=== PATIENT | male | born 1965 | race Two or more races ===

== ENCOUNTER 2017-07-24 09:14 | Inpatient (IN) | payer MEDICAID ==
[~2017-07-24] VITALS: Ht 172.7 cm; Wt 88.9 kg
--- NOTE | 2017-07-24 09:20 | NUR ---
AAOX3, BIBRA FROM WORK C/O SYNCOPAL EPISODE, BS=87MG/DL IN THE FIELD. RR IS EVEN AND UNLABORED WITH NAD NOTED. SKIN IS WARM AND DRY. PLACED ON THE MONITOR. DENIES CP.
[2017-07-24] MEDS ORDERED: IV NS 0.9% 500 ML BAG IV ONE (09:30)
[2017-07-24 09:32] LABS: BASOPHILS % (AUTO) 0.4 % (0.0-2.0); EOSINOPHILS # (AUTO) 0.1 /CMM (0.0-0.7); HEMATOCRIT 48 % (39-51); HEMOGLOBIN 16.3 g/dL (13.5-17.5); LYMPHOCYTES # (AUTO) 1.7 /CMM (0.8-4.8); LYMPHOCYTES % (AUTO) 27.4 % (20.0-44.0); MEAN CORPUSCULAR HEMOGLOBIN 30 PG (26.0-33.0); MEAN CORPUSCULAR HGB CONC 34 g/dl (31.0-36.0); MEAN CORPUSCULAR VOLUME 89 fL (80-96); MONOCYTES # (AUTO) 0.4 /CMM (0.1-1.30); MONOCYTES % (AUTO) 7.1 % (2.0-12.0); NEUTROPHILS # (AUTO) 3.9 /CMM (1.8-8.9); NEUTROPHILS % (AUTO) 64.1 % (43.0-81.0); RDW COEFFICIENT OF VARIATION 12.7 (11.5-15.0); RED BLOOD CELL COUNT(AUTO) 5.43 MIL/uL (4.5-6.0); WHITE BLOOD COUNT (AUTO) 6.1 K/uL (4.3-11.0)
[2017-07-24 09:43] LABS: PLATELET COUNT (AUTO) 125 /CMM (150-450)
[2017-07-24 09:46] LABS: CALCIUM, SERUM 8.6 mg/dL (8.5-10.1); CREATININE 1.3 mg/dL (0.6-1.3); POTASSIUM 4.3 mmol/L (3.5-5.1)
[2017-07-24 09:51] LABS: TROPONIN I 0.141 ng/mL (0.00-0.056)
--- NOTE | 2017-07-24 10:03 | NUR ---
PATIENT TRANSPORTED FOR CT.
--- NOTE | 2017-07-24 10:08 | NUR ---
CARDIOLOGY CONCRETE FORM SETTER PAGED
--- NOTE | 2017-07-24 10:18 | NUR ---
DR REYNOSO AT FOR AN UPDATE AND TALKING TO THE PATIENT AND FAMILY.
[2017-07-24] MEDS ORDERED: ASPIRIN 325 MG TABLET ONE (10:23)
[2017-07-24] MEDS ORDERED: ASPIRIN 325 MG TABLET PO ONE (10:30)
--- NOTE | 2017-07-24 10:52 | NUR ---
REPORT GIVEN TO MERY BOUCHER FOR ALEX TELE 111-2
[2017-07-24] MEDS ORDERED: IBUP800T54 PO (11:02)
[2017-07-24 11:22] VITALS: BP 123/73
[2017-07-24 12:00] VITALS: BP 123/73
--- NOTE | 2017-07-24 12:00 | NUR ---
LAB ANIMAL TECHNICIAN NOTE RECEIVED REPORT FROM ER. PT ARRIVED STABLE NO SOB. @ BEDSIDE. ALL SAFETY MEASURES IN PLACE. WILL CONTINUE TO MONITOR CLOSELY.
[2017-07-24] MEDS ORDERED: ACETAMINOPHEN 325 MG TABLET PO PRN ×2 (13:00→13:30)
[2017-07-24] MEDS ORDERED: IV NS 0.9% 1,000 ML IV PRN (13:07)
--- NOTE | 2017-07-24 13:21 | NUR ---
PATIENT KEEP NPO PER DR. SANTIAGO ORDER FOR CTA,[facility] CTA RN WILL DO TEST TODAY.PT. SIGNED CONSENT.
[2017-07-24] MEDS ORDERED: HYDROCODONE/APAP 5/325MG 1 EACH TABLET PO PRN (13:30)
[2017-07-24] MEDS ORDERED: ZOLPIDEM TARTRATE 5 MG TABLET PO PRN (13:30)
[2017-07-24] MEDS ORDERED: MAGNESIUM HYDROXIDE 30 ML UDC PO PRN (13:30)
[2017-07-24] MEDS ORDERED: ACETAMINOPHEN 650 MG/20.3 ML UDC NG PRN (13:30)
[2017-07-24] MEDS ORDERED: Z GUARD REMEDY 2 OZ OINT TP PRN (13:30)
[2017-07-24] MEDS ORDERED: MAG HYDROX/AL HYDROX/SIMETH 30 ML UDC PO PRN (13:30)
[2017-07-24] MEDS ORDERED: ONDANSETRON HCL/PF 4 MG/2 ML VIAL IVP PRN (13:30)
[2017-07-24] MEDS ORDERED: ASPIRIN 81 MG TAB.CHEW PO SCH (13:30)
[2017-07-24] MEDS ORDERED: IBUPROFEN 800 MG TABLET PO PRN (13:30)
[2017-07-24] MEDS: ATORVASTATIN 10 MG TABLET PO SCH (13:38)
[2017-07-24] MEDS: PANTOPRAZOLE 40 MG TABLET.DR PO SCH (13:38)
[2017-07-24 13:50] LABS: ALBUMIN 4.1 g/dL (3.4-5.0); BILIRUBIN,DIRECT 0.1 mg/dL (0.0-0.2); BILIRUBIN,TOTAL 0.6 mg/dL (0.2-1.0); MAGNESIUM 2.2 mg/dL (1.8-2.4); PHOSPHORUS 2.7 mg/dL (2.5-4.9); TOTAL PROTEIN, SERUM 7.3 g/dL (6.4-8.2)
[2017-07-24 14:00] LABS: THYROID STIMULATING HORMONE 1.2 uIU/mL (0.358-3.74)
[2017-07-24] MEDS ORDERED: ENOXAPARIN SODIUM 40 MG/0.4 ML DISP.SYRIN SQ SCH (14:00)
[2017-07-24 16:00] VITALS: BP 109/65
[2017-07-24] MEDS ORDERED: IOHEXOL-350 100 ML VIAL IV ONE (16:43)
[2017-07-24] MEDS ORDERED: IV NS 0.9% 250 ML IV ONE (16:43)
--- NOTE | 2017-07-24 19:26 | NUR ---
BUILDING ARCHITECT NOTE PT STABLE A/OX4 @ BEDSIDE. ALL ORDERS CARRIED OUT. ALL SAFETY MEASURES IN PLACE. REPORT GIVEN TO JOSIAH FOR ALEX.
[2017-07-24 20:00] VITALS: BP_SYST 101; BP_SYST 103; BP_SYST 121; BP_DIAS 57; BP_DIAS 61; BP_DIAS 71
--- NOTE | 2017-07-24 20:00 | NUR ---
RECEIVED PATIENT IN BED, AAO X 4 WITH AT THE BEDSIDE, PATIENT IS INDEPENDENT, SB ON THE MONITORS HR GOES LOW 45 NON SUSTAINED IVF STARTED ORDERED, EDUCATION/ INSTRUCTIONS GIVEN, QUESTIONS ANSWERED, CHOICES GIVEN. SAFETY MEASURES IN PLACE, INSTRUCTED TO CALL FOR ASSISTANCE . CONTINUE TO MONITOR
[2017-07-24] MEDS: IV NS 0.9% 1,000 ML IV PRN (20:42)
[2017-07-24 22:21] VITALS: BP 121/57
[2017-07-25] VITALS: BP_SYST 101; BP_SYST 106; BP_DIAS 51
[2017-07-25 04:00] VITALS: BP 103/56
[2017-07-25] MEDS: IV NS 0.9% 1,000 ML IV PRN (04:44)
--- NOTE | 2017-07-25 07:28 | NUR ---
RN NOTES RECEIVED PT FROM [employer] IN STABLE CONDITION. A&0X3, ON ROOM AIR NO SOB OR DISTRESS NOTED. AT BEDSIDE. SINUS ELLIS ON THE TELE YARELIS HR 58. RAC 18G IV SITE INTACT WITH IVF AT 75ML/HR. BED LOCKED AND IN LOWEST POSITION, CALL LIGHT WITHIN REACH, SIDE RAILS UPX3, WILL CONT TO YARELIS.
[2017-07-25 07:57] LABS: BASOPHILS % (AUTO) 0.4 % (0.0-2.0); EOSINOPHILS # (AUTO) 0.1 /CMM (0.0-0.7); EOSINOPHILS % (AUTO) 1.2 % (0.0-6.0); HEMATOCRIT 45 % (39-51); HEMOGLOBIN 15.3 g/dL (13.5-17.5); LYMPHOCYTES # (AUTO) 1.4 /CMM (0.8-4.8); LYMPHOCYTES % (AUTO) 23.9 % (20.0-44.0); MEAN CORPUSCULAR HEMOGLOBIN 30 PG (26.0-33.0); MEAN CORPUSCULAR HGB CONC 34 g/dl (31.0-36.0); MEAN CORPUSCULAR VOLUME 88 fL (80-96); MONOCYTES # (AUTO) 0.3 /CMM (0.1-1.30); NEUTROPHILS # (AUTO) 3.9 /CMM (1.8-8.9); NEUTROPHILS % (AUTO) 68.5 % (43.0-81.0); PLATELET COUNT (AUTO) 114 /CMM (150-450); RED BLOOD CELL COUNT(AUTO) 5.06 MIL/uL (4.5-6.0); WHITE BLOOD COUNT (AUTO) 5.8 K/uL (4.3-11.0)
[2017-07-25 08:00] VITALS: BP_SYST 108; BP_DIAS 71; BP_DIAS 74
[2017-07-25] MEDS: PANTOPRAZOLE 40 MG TABLET.DR PO SCH (08:14)
[2017-07-25] MEDS: ATORVASTATIN 10 MG TABLET PO SCH (08:14)
[2017-07-25 08:40] LABS: ALBUMIN 3.4 g/dL (3.4-5.0); CALCIUM, SERUM 8.1 mg/dL (8.5-10.1); CREATININE 1.1 mg/dL (0.6-1.3); PHOSPHORUS 2.5 mg/dL (2.5-4.9); POTASSIUM 4.5 mmol/L (3.5-5.1); TOTAL PROTEIN, SERUM 6.2 g/dL (6.4-8.2)
[2017-07-25 08:44] LABS: TROPONIN I 0.188 ng/mL (0.00-0.056)
[2017-07-25 08:50] LABS: THYROID STIMULATING HORMONE 1.361 uIU/mL (0.358-3.74)
[2017-07-25] MEDS ORDERED: ASPIRIN 81 MG TAB.CHEW PO SCH (09:00)
[2017-07-25 12:00] VITALS: BP 108/71
[2017-07-25] MEDS ORDERED: ASPI-605 PO (12:50)
[2017-07-25] MEDS ORDERED: CHOL100040 PO (12:56)
[2017-07-25] MEDS ORDERED: MULT1TAB73 PO (12:56)
--- NOTE | 2017-07-25 13:17 | NUR ---
RN NOTES PT DISCHARGED IN STABLE CONDITION WITH AT BEDSIDE.
== END 2017-07-25 13:16 | disposition home or self-care (01) | DRG 48 ==
LOC: ER 09:16 → TELE-TD 11:51 → TELE1 12:03
PROVIDERS: ADMIT Internal Medicine; ATTEND Internal Medicine
DX: G90.8 Other disorders of autonomic nervous system (principal); I21.A1 Myocardial infarction type 2; D69.6 Thrombocytopenia, unspecified; E78.5 Hyperlipidemia, unspecified; K21.9 Gastro-esophageal reflux disease without esophagitis; R00.1 Bradycardia, unspecified; E55.9 Vitamin D deficiency, unspecified; E61.1 Iron deficiency
CPT/HCPCS: 36415; 70450-TC; 71045-TC; 75574; 80048-TC; 80053-TC; 80061-TC; 80076-TC; 82306; 82746; 83540-TC; 83735-TC; 84100-TC; 84439-TC; 84443-TC; 84484-TC; 85025-TC; 93307-TC; A4606; J1650; J7030; J7040; J7050; Q9967; Z7610